=== PATIENT | female | born 1960 | race Caucasian/White ===

== ENCOUNTER 2016-07-27 16:31 | Emergency (ER) | payer BC ==
[2016-07-27 16:40] VITALS: BP 125/82; PULSE 70; RESP 19; TEMP 97.9; O2SAT 96
[2016-07-27 17:23] LABS: URINE BILIRUBIN NEGATIVE (NEGATIVE); URINE BLOOD LARGE (NEGATIVE); URINE GLUCOSE (UA) 100 mg/dL (NEGATIVE); URINE KETONE NEGATIVE (NEGATIVE); URINE LEUKOCYTE ESTERASE LARGE Leu/uL (NEGATIVE); URINE PROTEIN 100 mg/dL (<30 mg/dL)
[2016-07-27 17:28] LABS: URINE COLOR ORANGE (YELLOW)
[2016-07-27 17:29] LABS: URINE APPEARANCE CLOUDY (CLEAR)
--- NOTE | 2016-07-27 17:43 | ED PDOC ---
Addendum entered and electronically signed by Rizwana Bronson PA-C 07/29/16 14:17 : Addendum Addendum: 07/29/16 14:16 I called patient regarding urine test. I left message on voice mail to call us back [email or web address] Original Note: Arrival/HPI - General Historian: Patient - History of Present Illness Context: Home - General Chief Complaint: Female Genitourinary Time Seen by Provider: 07/27/16 16:32 - History of Present Illness Narrative History of Present Illness (Text): 07/27/16 17:25 This 55 yo female with pmh UTI, presents to this c/o dysuria, urinary frequency , hematuria, or urgency since early today. Denies flank pain, fever, recent travel, sick contact, vaginal discharge, vaginal bleeding, dizziness, n/v, abdominal pain, rectal bleeding, rectal pain, or abnormal gait. (Rizwana Bronson) Past Medical History - Provider Review Nursing Documentation Reviewed: Yes - Infectious Disease Hx of Infectious Diseases: None - Reproductive Menopause: Yes - Cardiac Hx Hypertension: Yes - Renal Hx Kidney Stones: Yes - Genitourinary/Gynecological Hx Urinary Tract Infection: Yes - Psychiatric Hx Substance Use: No - Surgical History Hx Appendectomy: Yes - Anesthesia Hx Anesthesia: Yes Hx Anesthesia Reactions: No Hx Malignant Hyperthermia: No Family/Social History - Physician Review Nursing Documentation Reviewed: Yes Family/Social History: No Known Family HX Smoking Status: Never Smoked Hx Alcohol Use: No Hx Substance Use: No Allergies/Home Meds Allergies/Adverse Reactions: Allergies No Known Allergies Allergy (Verified 07/27/16 16:40) Home Medications: Home Meds Medication Instructions Recorded Confirmed Phenazopyridine [Phenazopyridine 100 mg PO DAILY 07/27/16 07/27/16 HCl] Review of Systems - Review of Systems Constitutional: Normal. absent: Fatigue, Weight Change, Fevers Eyes: Normal ENT: Normal Respiratory: Normal Cardiovascular: Normal Gastrointestinal: Normal Genitourinary Female: Dysuria, Frequency, Hematuria. absent: Urine Output Changes, Vaginal Bleeding, Vaginal Discharge Musculoskeletal: Normal Skin: Normal Neurological: Normal Endocrine: Normal Hemo/Lymphatic: Normal Psychiatric: Normal Physical Exam Temperature: Afebrile Blood Pressure: Normal Pulse: Regular Respiratory Rate: Normal Appearance: Positive for: Well-Appearing, Non-Toxic, Comfortable Pain Distress: None Mental Status: Positive for: Alert and Oriented X 3 - Systems Exam Head: Present: Atraumatic, Normocephalic Pupils: Present: PERRL Extroacular Muscles: Present: EOMI Conjunctiva: Present: Normal Mouth: Present: Moist Mucous Membranes Neck: Present: Normal Range of Motion Respiratory/Chest: Present: Clear to Auscultation, Good Air Exchange. No: Respiratory Distress, Accessory Muscle Use Cardiovascular: Present: Regular Rate and Rhythm, Normal S1, S2. No: Murmurs Abdomen: Present: Normal Bowel Sounds. No: Tenderness, Distention, Peritoneal Signs, Rebound, Guarding Back: Present: Normal Inspection. No: CVA Tenderness Upper Extremity: Present: Normal Inspection, Normal ROM, Neurovascularly Intact. No: Cyanosis, Edema Lower Extremity: Present: Normal Inspection, NORMAL PULSES, Normal ROM. No: Edema Neurological: Present: GCS=15, CN II-XII Intact, Speech Normal, Motor Func Grossly Intact, Normal Sensory Function, Normal Cerebellar Funct, Gait Normal Skin: Present: Warm, Dry, Normal Color. No: Rashes Psychiatric: Present: Alert, Oriented x 3, Normal Insight, Normal Concentration Medical Decision Making Re-evaluation Time: 19:10 Reassessment Condition: Re-examined, Improved - Lab Interpretations I have reviewed the lab results: Yes Interpretation: Abnormal lab values ED Course and Treatment: 07/27/16 19:10 Re-evaluation. Patient feels better. Discussed results and plan with patient who expresses understanding. All questions answered and there is agreement with the plan to discharge home with instructions. Patient stable for discharge. Return if symptoms persist or worsen. 07/27/16 19:13 Patient stated she has been taking Pyridium (Bronson,Nahim P) 07/29/16 14:51 Patient called back after we placed a call for her Ucx. She said her symptoms are improved. Will Rx Keflex 500mg PO BID x 7 days and called it in at [facility] at [phone]. Patient is aware that I called it in to her pharmacy and she will pick it up. (Ruben Sneed) - Lab Interpretations Microbiology Results: Microbiology Results 07/27/16 17:10 Urine,Clean Catch Urine Culture - Final Klebsiella Pneumoniae Ssp Pneu Lab Results: Lab Results 07/27/16 17:10: Urine Color [place], Urine Appearance Cloudy, Urine pH 7.0, Ur Specific Ethel 1.015, Urine Protein 100 H, Urine Glucose (UA) 100 H, Urine Ketones Negative, Urine Blood Large H, Urine Nitrate Positive H, Urine Bilirubin Negative, Urine Urobilinogen 4.0 H, Ur Leukocyte Esterase Large H, Urine RBC Tntc, Urine WBC 15 - 20, Ur Epithelial Cells 1 - 3, Urine Bacteria Many, Urine Other Fiber - Medication Orders Current Medication Orders: Discontinued Medications Naproxen (Anaprox Ds) 550 mg PO STAT STA Stop: 07/27/16 18:02 Last Admin: 07/27/16 18:11 Dose: 550 mg Nitrofurantoin Macrocrystals (Macrobid) 100 mg PO STAT STA Stop: 07/27/16 17:44 Last Admin: 07/27/16 17:55 Dose: 100 mg Disposition/Present on Arrival - Present on Arrival Any Indicators Present on Arrival: No History of DVT/PE: No History of Uncontrolled Diabetes: No Urinary Catheter: No History of Decub. Ulcer: No History Surgical Site Infection Following: None - Disposition Have Diagnosis and Disposition been Completed?: Yes Disposition Time: 19:11 Patient Plan: Discharge - Disposition Diagnosis: Acute cystitis Disposition: HOME/ ROUTINE Condition: GOOD Discharge Instructions (ExitCare): Urinary Tract Infection in Women (ED) Additional Instructions: Call private [facility] [employer] doctor for follow up visit in 1-2 days. Take medication as instructed. Return to emergency if symptoms worsen. Prescriptions: Naproxen [Naprosyn Tab] 375 mg PO BID #14 tab Nitrofurantoin Macrocrystals [Macrobid] 100 mg PO BID #14 cap Referrals: Radha NEAL,Chase Darling MD [Primary Care Provider] - Follow up with primary Forms: Air Visits Discharge (Thai), WORK NOTE
[2016-07-27 17:47] LABS: URINE BACTERIA MANY (NEG); URINE RBC TNTC /hpf (0-2); URINE WBC 15 - 20 /hpf (0-6)
[2016-07-27] MEDS ORDERED: Naproxen 550 mg Tab PO STA (18:01)
== END 2016-07-27 19:19 | disposition home or self-care (01) ==
LOC: ED 16:31
DX: N30.00 Acute cystitis without hematuria (principal)